=== PATIENT | female | born 1990 | race Asian ===

== ENCOUNTER 2025-06-11 07:04 | Emergency (ER) | payer MEDICAID ==
[~2025-06-11] VITALS: Ht 160 cm; Wt 57.6 kg
[2025-06-11 07:09] VITALS: O2SAT 99
[2025-06-11] MEDS: ACETAMINOPHEN 325MG TABLET PO ONE (08:19)
[2025-06-11] MEDS ORDERED: TOPUD PO (09:18)
[2025-06-11 09:56] VITALS: BP 120/77; PULSE 66; RESP 16; TEMP 36.8; O2SAT 99
== END 2025-06-11 10:03 | disposition home or self-care (01) ==
LOC: ER 07:04
DX: B34.9 Viral infection, unspecified (principal); Z20.822 Contact with and (suspected) exposure to COVID-19
CPT/HCPCS: 81025; 87070; 87426; 87430; 99283